=== PATIENT | female | born 1950 ===

== ENCOUNTER 2017-04-20 08:10 | Emergency (ER) | payer MEDICARE | END 2017-04-20 08:43 | disposition home or self-care (01) | LOC: NAV ERS 08:10 | DX: J06.9 Acute upper respiratory infection, unspecified (principal); E03.9 Hypothyroidism, unspecified; E78.5 Hyperlipidemia, unspecified; I10 Essential (primary) hypertension; Z79.899 Other long term (current) drug therapy | CPT/HCPCS: 99283 ==